=== PATIENT | male | born 1950 | race Caucasian/White ===

== ENCOUNTER 2017-01-23 17:05 | Inpatient (IN) | payer OTHER ==
[2017-01-23] MEDS ORDERED: SODIUM CHLORIDE 0.9% 2,000 ML ONE (17:29)
[2017-01-23 17:59] LABS: ALB/GLOB RATIO 1.1 (>1.0); CALCIUM 10.1 mg/dL (8.6-10.3)
[2017-01-23] MEDS ORDERED: POTASSIUM CHLORIDE 10MEQ/100ML 100 ML IV ONE ×2 (18:30→19:57)
--- NOTE | 2017-01-23 18:41 | RAD ---
CHEST-AP BEDSIDE COMPARISON: Chest 2 views 07/19/2016 HISTORY: Weakness. FINDINGS: Views: Frontal chest. Lungs: Heart and vessels: Normal Trachea and bronchi: Normal Mediastinum and erika: Normal Costophrenic sulci: Normal Chest wall and bones: Normal Upper abdomen: Normal. IMPRESSION: Negative one view chest.
[2017-01-23 18:51] LABS: ABSOLUTE NEUTROPHIL COUNT 4.3 K/mm3 (1.8-7.7); BASO % 0.6 % (0.2-1.0); EOS % 0.2 % (0.9-2.9); HEMATOCRIT 32.7 % (32.0-52.0); IMM NEUT% 0.4 % (0-1); LYMPH # 0.6 (1.0-4.8); LYMPH % 10.9 % (15-45); MEAN CELL VOLUME 94.5 fl (80.0-94.0); MEAN CORPUSCULAR HEMOGLOBIN 34.7 pg (27.0-31.0); MEAN CORPUSCULAR HGB CONC 36.7 g/dl (33.0-37.0); MEAN PLATELET VOLUME 11.2 fl (7.4-10.4); MONO # 0.4 (0.0-0.8); MONO % 8.1 % (4-12); NEUT % 79.8 % (43-75); PLATELET COUNT 249 K/mm3 (130-400); RED CELL DISTRIBUTION WIDTH 12.3 % (11.5-14.5)
[2017-01-23 20:24] LABS: ARTERIAL BLOOD GAS pH 7.487 (7.350-7.450)
[2017-01-23 20:25] LABS: ARTERIAL BLOOD GAS BASE EXCESS 14.3 mmol/L (-2.0-2.0); ARTERIAL BLOOD GAS HCO3 39.6 mmol/L (22.0-28.0); ARTERIAL BLOOD GAS PCO2 53.5 mmHg (35.0-45.0); ARTERIAL BLOOD GAS PO2 68.9 mmHg (80.0-90.0)
[2017-01-23 20:48] VITALS: BMI 23.3
[2017-01-23] MEDS ORDERED: PUMP TUBING ONE ×3 (21:57→22:37)
[2017-01-23] MEDS ORDERED: BLISTEX LIPSTICK 1 EACH TP PRN (22:03)
[2017-01-23] MEDS ORDERED: LORAZEPAM 2 MG/ML 1ML SDV IV PRN (22:03)
[2017-01-23] MEDS ORDERED: HYDROMORPHONE HCL 1 MG/ML SYRINGE IV PRN (22:11)
[2017-01-23] MEDS ORDERED: ONDANSETRON 4 MG/2ML 2 ML VIAL IV PRN (22:11)
[2017-01-23] MEDS ORDERED: HYDROMORPHONE HCL 2 MG/ML SYRINGE IV PRN (22:11)
[2017-01-23] MEDS ORDERED: PANTOPRAZOLE SODIUM 40 MG VIAL IV SCH (22:15)
[2017-01-23] MEDS ORDERED: MULTIVITAMINS 1,000 ML IV ONE (22:19)
[2017-01-23] MEDS: SODIUM CHLORIDE 0.9% 1,000 ML IV SCH (22:27)
[2017-01-23] MEDS: ENOXAPARIN SODIUM 40 MG/0.4 ML SYRINGE SUB-Q SCH (22:30)
[2017-01-23] MEDS ORDERED: POTASSIUM CHLORIDE 40 MEQ in SODIUM CHLORIDE 0.9% 500 ML IV ONE (22:30)
[2017-01-23] MEDS: MULTIVITAMINS 10 ML, FOLIC ACID 2 MG, MAGNESIUM SULFATE 1 G/2 ML 2 G, THIAMINE HCL 100 ... IV SCH ×5 (22:41)
[2017-01-24] MEDS: SODIUM CHLORIDE 0.9% 1,000 ML IV SCH ×3 (05:20→10:39)
[2017-01-24 05:48] LABS: ABSOLUTE NEUTROPHIL COUNT 3.4 K/mm3 (1.8-7.7); BASO % 0.6 % (0.2-1.0); EOS % 0.4 % (0.9-2.9); HEMATOCRIT 26.6 % (32.0-52.0); HEMOGLOBIN 9.5 gm/l (14.0-18.0); IMM NEUT% 0.4 % (0-1); LYMPH # 1.2 (1.0-4.8); MEAN CELL VOLUME 96.7 fl (80.0-94.0); MEAN CORPUSCULAR HEMOGLOBIN 34.5 pg (27.0-31.0); MEAN CORPUSCULAR HGB CONC 35.7 g/dl (33.0-37.0); MEAN PLATELET VOLUME 10.9 fl (7.4-10.4); MONO # 0.6 (0.0-0.8); MONO % 10.6 % (4-12); PLATELET COUNT 188 K/mm3 (130-400); RED CELL DISTRIBUTION WIDTH 12.4 % (11.5-14.5)
[2017-01-24 06:14] LABS: ALB/GLOB RATIO 1.1 (>1.0); ALBUMIN 3.1 gm/dL (3.5-5.7); MAGNESIUM 2.3 mg/dL (1.9-2.7)
[2017-01-24] MEDS ORDERED: POTASSIUM CHLORIDE 40 MEQ in SODIUM CHLORIDE 0.9% 500 ML IV ONE ×2 (07:30→19:00)
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
[2017-01-24] MEDS: PANTOPRAZOLE SODIUM 40 MG VIAL IV SCH ×2 (08:46→21:41)
[2017-01-24 09:36] LABS: SPECIFIC GRAVITY 1.015 (1.001-1.030); URINE BILIRUBIN NEGATIVE (NEGATIVE); URINE BLOOD 3+ (NEGATIVE); URINE GLUCOSE (UA) NEGATIVE (NEGATIVE); URINE LEUKOCYTE ESTERASE TRACE (NEGATIVE); URINE NITRITE NEGATIVE (NEGATIVE); URINE PROTEIN NEGATIVE (NEGATIVE); URINE UROBILINOGEN NORMAL (0-1 mg/dl)
[2017-01-24] MEDS ORDERED: SODIUM CHLORIDE 0.9% 1,000 ML IV SCH (09:45)
[2017-01-24 09:59] LABS: URINE APPEARANCE HAZY; URINE COLOR YELLOW
[2017-01-24 10:00] LABS: AMPHETAMINES/METHAMPHETAMINES NEGATIVE (NEGATIVE); COCAINE NEGATIVE (NEGATIVE); MARIJUANA POSITIVE (NEGATIVE); METHADONE NEGATIVE (NEGATIVE); OPIATES NEGATIVE (NEGATIVE); TRICYCLIC ANTIDEPRESSANTS NEGATIVE (NEGATIVE)
[2017-01-24 10:18] LABS: URINE BACTERIA FEW; URINE WBC 0-3 /hpf
[2017-01-24 10:19] LABS: URINE AMORPHOUS SEDIMENT 1+
[2017-01-24] MEDS ORDERED: DEXTROSE 50%-WATER 25 G SYRINGE IV ONE (10:29)
--- NOTE | 2017-01-24 10:37 | PDOC43 ---
- Subjective Chief Complaint: Vomiting Awake and responds to yes/no questions by shaking head. Indicates abdominal pain and lightheadedness. Had vomiting and diarrhea at home. - Objective Vital Signs Temperature 97.7 F 01/24/17 07:20 Pulse Rate 78 01/24/17 07:20 Respiratory Rate 10 01/24/17 07:20 Blood Pressure 84/46 01/24/17 07:20 O2 Saturation by Pulse Oximetry 99 01/24/17 07:20 Oxygen Delivery Method Room Air Oxygen Flow Rate 0 Intake and Output 01/23/17 01/24/17 01/25/17 06:59 06:59 06:59 Intake Total 1187 Output Total 870 600 Balance 317 -600 General: Alert, Cooperative, Mild Distress HEENT: Mucous membr. moist/pink (tissue in mouthto absorb secretions) Lungs: Clear to Auscultation Bilaterally Cardiovascular: Regular Rate and Rhythm Abdomen: Firm, Tenderness (epigastrum and LLQ), Normal Bowel Sounds, Non- Distended, No Rebounding, No Involuntary Guarding, No Masses Extremities: Normal Pulses, No Edema Skin: Normal Color Laboratory 01/24/17 05:30 01/24/17 05:30 01/24/17 05:30 RBC 2.75 L MCV 96.7 H MCH 34.5 H Total Protein 5.9 L Albumin 3.1 L Current Medications: Current meds reviewed in EMR. - Problems: Assessment/Plan (1) Pancreatitis Qualifiers: Chronicity: acute Pancreatitis type: alcohol induced Acute pancreatitis complication: unspecified Qualifier Code: (K85.20) Alcohol induced acute pancreatitis without necrosis or infection Status: Acute Assessment/Plan: Acute pancreatitis presumed due to EtOH abuse present on admit causing vomiting , abd. pain, diarrhea and severe dehydration with lactic acidosis. Hypotension and tachycardia due to dehydration still requiring fluid replacement. Lipase is normal today but abdomen acid tender therefore will not resume tube feeding today. Does not have evidence of sepsis or chronic liver disease. (2) Dehydration Status: AcuteAssessment/Plan: Associated with lactic acidosis, electrolyte abnormalities and due to acute pancreatitis, still symptomatic. Continue fluid and electrolyte replacement. (3) Alcohol abuse, episodic Status: AcuteAssessment/Plan: [facility] protocol (4) CAD (coronary artery disease), [place] coronary artery Qualifiers: [place] vs. transplanted heart: [place] heart Associated angina: without angina Qualifier Code: (I25.10) Atherosclerotic heart disease of [place] coronary artery without angina pectoris Status: ChronicAssessment/Plan: No evidence of ACS. Metoprolol on hold due to hypotension. (5) Hypertension Qualifiers: Hypertension type: essential hypertension Qualifier Code: (I10) Essential (primary) hypertension Status: AcuteAssessment/Plan: Currently hypotensive due to dehydration and meds on hold. (6) COPD (chronic obstructive pulmonary disease) Qualifiers: COPD type: unspecified COPD Qualifier Code: (J44.9) Chronic obstructive pulmonary disease, unspecified Status: ChronicAssessment/Plan: Not using home inhalers due to late effects of CVA, no O2 requirement. (7) PTSD (post-traumatic stress disorder) Status: ChronicAssessment/Plan: Resume meds when known. (8) Hypokalemia Status: AcuteAssessment/Plan: replace (9) Hyponatremia Status: AcuteAssessment/Plan: replace (10) Anemia Status: AcuteAssessment/Plan: acute change due to dilution from IVF. Likely has chronic anemia due to nutritional factors and alcoholism. (11) Late effects of CVA (cerebrovascular accident) Status: ChronicAssessment/Plan: Chronic dysphagia with G-tube and aphasia due to prior CVA. (12) Hypoglycemia Status: AcuteAssessment/Plan: Add dextrose to IVF and check CBGs Q6h. VTE Prophylaxis: Enoxaparin Disposition: unclear
[2017-01-24] MEDS: D5NS with 20mEq KCL 1,000 ML IV SCH ×2 (11:16→14:50)
[2017-01-24 17:29] LABS: INR 1.03; PROTHROMBIN TIME 10.8 SECONDS (9.3-11.4)
[2017-01-24 17:50] LABS: CALCIUM 8.5 mg/dL (8.6-10.3)
[2017-01-24] MEDS: NS/Potassium Chlor 20 mEq 1,000 ML IV SCH (19:15)
[2017-01-24] MEDS: ENOXAPARIN SODIUM 40 MG/0.4 ML SYRINGE SUB-Q SCH (21:41)
[2017-01-24 22:00] LABS: FOLIC ACID > 23.7 ng/mL (>5.9)
[2017-01-24] MEDS ORDERED: PUMP TUBING ONE (22:13)
[2017-01-24] MEDS: MULTIVITAMINS 10 ML, FOLIC ACID 2 MG, MAGNESIUM SULFATE 1 G/2 ML 2 G, THIAMINE HCL 100 ... IV SCH ×5 (22:23)
[2017-01-25] MEDS ORDERED: D5 1/2NS with 20 mEq KCL 1,000 ML IV SCH (03:15)
[2017-01-25] MEDS: NS/Potassium Chlor 20 mEq 1,000 ML IV SCH (03:45)
[2017-01-25 06:12] LABS: HEMATOCRIT 24.2 % (32.0-52.0); HEMOGLOBIN 8.3 gm/l (14.0-18.0); MEAN CELL VOLUME 99.6 fl (80.0-94.0); MEAN CORPUSCULAR HEMOGLOBIN 34.2 pg (27.0-31.0); MEAN CORPUSCULAR HGB CONC 34.3 g/dl (33.0-37.0)
[2017-01-25 06:35] LABS: ALBUMIN 2.7 gm/dL (3.5-5.7); CALCIUM 8.6 mg/dL (8.6-10.3)
[2017-01-25] MEDS ORDERED: INSULIN ASPART (DOSE) 100 UNITS/1 ML SUB-Q PRN (07:41)
--- NOTE | 2017-01-25 07:43 | PDOC43 ---
- Subjective Chief Complaint: Vomiting Awake and alert. Denies abd pain or nausea, has been reporting hunger. Denies CP or dyspnea but still feels lightheaded. - Objective Vital Signs Temperature 97.7 F 01/25/17 02:41 Pulse Rate 74 01/25/17 04:19 Respiratory Rate 14 01/25/17 04:19 Blood Pressure 107/64 01/25/17 04:19 O2 Saturation by Pulse Oximetry 96 01/25/17 04:19 Oxygen Delivery Method Nasal Cannula Oxygen Flow Rate 2 Intake and Output 01/24/17 01/25/17 01/26/17 06:59 06:59 06:59 Intake Total 1187 4681 Output Total 870 1551 Balance 317 3130 General: Alert, Cooperative, No Acute Distress HEENT: Mucous membr. moist/pink Lungs: Clear to Auscultation Bilaterally Cardiovascular: Regular Rate and Rhythm Abdomen: Soft, Hypoactive Bowel Sounds, No Tenderness, No Masses Extremities: Pulses Diminished but Palpable, No Edema Skin: Normal Color Psych/Mental Status: Normal Mood Laboratory 01/25/17 05:30 01/25/17 05:30 01/25/17 01/24/17 01/24/17 05:30 17:02 10:33 RBC 2.43 L MCV 99.6 H MCH 34.2 H Anion Gap 6 L Estimated GFR 112 H 96 H Calcium 8.5 L Iron 46 L Total Protein 5.3 L Albumin 2.7 L U Marijuana (THC) Screen 01/24/17 09:05 RBC MCV MCH Anion Gap Estimated GFR Calcium Iron Total Protein Albumin U Marijuana (THC) Screen Positive H Current Medications: Current meds reviewed in EMR. - Problems: Assessment/Plan (1) Pancreatitis Qualifiers: Chronicity: acute Pancreatitis type: alcohol induced Acute pancreatitis complication: unspecified Qualifier Code: (K85.20) Alcohol induced acute pancreatitis without necrosis or infection Status: Acute Assessment/Plan: Acute pancreatitis presumed due to EtOH abuse present on admit causing vomiting , abd. pain, diarrhea and severe dehydration with lactic acidosis. Hypotension and tachycardia due to dehydration was related to pancreatitis. Lipase is normal and pain has resolved, will resume tube feeding per RD plan. Does not have evidence of sepsis or chronic liver disease. (2) Dehydration Status: AcuteAssessment/Plan: Associated with lactic acidosis, electrolyte abnormalities and due to acute pancreatitis, still symptomatic. Continue fluid and electrolyte replacement. (3) Alcohol abuse, episodic Status: AcuteAssessment/Plan: [facility] protocol (4) CAD (coronary artery disease), [place] coronary artery Qualifiers: [place] vs. transplanted heart: [place] heart Associated angina: without angina Qualifier Code: (I25.10) Atherosclerotic heart disease of [place] coronary artery without angina pectoris Status: ChronicAssessment/Plan: No evidence of ACS. Metoprolol on hold due to hypotension. (5) Hypertension Qualifiers: Hypertension type: essential hypertension Qualifier Code: (I10) Essential (primary) hypertension Status: AcuteAssessment/Plan: Currently hypotensive due to dehydration and meds on hold. (6) COPD (chronic obstructive pulmonary disease) Qualifiers: COPD type: unspecified COPD Qualifier Code: (J44.9) Chronic obstructive pulmonary disease, unspecified Status: ChronicAssessment/Plan: Not using home inhalers due to late effects of CVA. Appears to have sleep apnea and needs O2 when he is is not awake, this may be central sleep apnea due to his prior CVA. (7) PTSD (post-traumatic stress disorder) Status: ChronicAssessment/Plan: Resume Paroxetine per GT (8) Hypokalemia Status: AcuteAssessment/Plan: improving with replacement (9) Hyponatremia Status: AcuteAssessment/Plan: improving (10) Anemia Qualifiers: Anemia type: iron deficiency Iron deficiency anemia type: inadequate dietary iron intake Qualifier Code: (D50.8) Other iron deficiency anemias Status: AcuteAssessment/Plan: acute change due to dilution from IVF. Likely has chronic anemia due to nutritional factors and alcoholism. Labs indicate iron deficiency, supplement. (11) Late effects of CVA (cerebrovascular accident) Status: ChronicAssessment/Plan: Chronic dysphagia with G-tube and aphasia due to prior CVA, at baseline. (12) Hypoglycemia Status: AcuteAssessment/Plan: Became hyperglycemic with D5 in IVF, D/C IV dextrose when tube feeding is resumed, continue CBGs Q6h. VTE Prophylaxis: Enoxaparin Disposition: unclear
[2017-01-25] MEDS: PANTOPRAZOLE SODIUM 40 MG VIAL IV SCH ×2 (08:50→21:23)
[2017-01-25] MEDS: FERROUS SULFATE (65 Fe) 325 MG TABLET GT SCH (08:51)
[2017-01-25] MEDS: THIAMINE HCL 100 MG TABLET GT SCH (08:51)
[2017-01-25] MEDS: CLOPIDOGREL BISULFATE 75 MG TABLET GT SCH (08:51)
[2017-01-25] MEDS: ASCORBIC ACID 250 MG TABLET GT SCH (08:51)
[2017-01-25] MEDS: PAROXETINE HCL 30 MG GT SCH (08:52)
[2017-01-25] MEDS ORDERED: THIAMINE HCL 100 MG TABLET PO SCH (09:00)
[2017-01-25] MEDS ORDERED: CALCIUM CARBONATE GT SCH (09:00)
[2017-01-25] MEDS ORDERED: [UNRECOGNIZED DRUG - OTHER] GT SCH (09:00)
[2017-01-25] MEDS ORDERED: VITAMIN D3 GT SCH (09:00)
[2017-01-25] MEDS: CALCIUM CARBONATE 600 MG/VITAMIN D3 400 UNIT/TABLET GT SCH ×2 (11:15→21:23)
[2017-01-25] MEDS ORDERED: SODIUM CHLOR 0.9% w 40mEq KCL 1,000 ML IV SCH (15:45)
[2017-01-25] MEDS ORDERED: PUMP TUBING ONE (15:54)
[2017-01-25] MEDS: ENOXAPARIN SODIUM 40 MG/0.4 ML SYRINGE SUB-Q SCH (21:23)
[2017-01-25] MEDS: ATORVASTATIN CALCIUM 40 MG TABLET GT SCH (21:23)
[2017-01-25] MEDS: MULTIVITAMINS 10 ML, FOLIC ACID 2 MG, MAGNESIUM SULFATE 1 G/2 ML 2 G, THIAMINE HCL 100 ... IV SCH ×5 (22:55)
[2017-01-26] MEDS ORDERED: ALBUTEROL NEB 2.5 MG/3 ML VIAL.NEB NEB ONE ×2 (05:00)
[2017-01-26] MEDS ORDERED: WATER FOR IRRIG,STERILE 500 ML BOT ONE (09:32)
[2017-01-26] MEDS ORDERED: IV START KIT ONE (09:38)
[2017-01-26] MEDS: CLOPIDOGREL BISULFATE 75 MG TABLET GT SCH (09:52)
[2017-01-26] MEDS: ASCORBIC ACID 250 MG TABLET GT SCH (09:52)
[2017-01-26] MEDS: PAROXETINE HCL 30 MG GT SCH (09:53)
[2017-01-26] MEDS: PANTOPRAZOLE SODIUM 40 MG VIAL IV SCH (09:53)
[2017-01-26] MEDS: FERROUS SULFATE (65 Fe) 325 MG TABLET GT SCH (09:53)
[2017-01-26] MEDS: THIAMINE HCL 100 MG TABLET GT SCH (09:53)
[2017-01-26] MEDS ORDERED: LORAZEPAM 2 MG/ML GT PRN (11:41)
--- NOTE | 2017-01-26 11:41 | PDOC43 ---
- Subjective Chief Complaint: Vomiting Became agitated and tachycardic this a.m. likely due to EtOH withdrawal. Now sleeping soundly after receiving lorazapam. Tolerating tube feeding. - Objective Vital Signs Temperature 98.1 F 01/26/17 08:19 Pulse Rate 122 01/26/17 08:19 Respiratory Rate 24 01/26/17 08:19 Blood Pressure 97/66 01/26/17 08:19 O2 Saturation by Pulse Oximetry 87 01/26/17 08:19 Oxygen Delivery Method Room Air Oxygen Flow Rate 0 95% on 2 L/min by NC while sleeping Intake and Output 01/25/17 01/26/17 01/27/17 06:59 06:59 06:59 Intake Total 4681 1453 Output Total 1551 342 121 Balance 3130 1111 -121 General: No Acute Distress HEENT: Mucous membr. moist/pink Lungs: Clear to Auscultation Bilaterally Cardiovascular: Regular Rate and Rhythm Abdomen: Soft, Normal Bowel Sounds, No Tenderness, No Masses Extremities: Normal Pulses, No Edema Skin: Normal Color Laboratory 01/25/17 05:30 01/26/17 05:45 01/26/17 01/26/17 01/25/17 06:14 05:45 18:23 Estimated GFR 96 H POC Capillary Glucose 158 H 140 H Current Medications: Current meds reviewed in EMR. - Problems: Assessment/Plan (1) Pancreatitis Qualifiers: Chronicity: acute Pancreatitis type: alcohol induced Acute pancreatitis complication: unspecified Qualifier Code: (K85.20) Alcohol induced acute pancreatitis without necrosis or infection Status: Acute Assessment/Plan: Acute pancreatitis presumed due to EtOH abuse present on admit causing vomiting , abd. pain, diarrhea and severe dehydration with lactic acidosis. Hypotension and tachycardia were due to dehydration and were related to pancreatitis. Lipase is normal and pain has resolved, tolerating tube feeding per RD plan. Does not have evidence of sepsis or chronic liver disease. (2) Dehydration Status: AcuteAssessment/Plan: Associated with lactic acidosis, electrolyte abnormalities and due to acute pancreatitis. Resolved. (3) Alcohol abuse, episodic Status: AcuteAssessment/Plan: [facility] protocol, now appears to have withdrawal sx but over-sedated by lorazapam, decrease dose. (4) CAD (coronary artery disease), [place] coronary artery Qualifiers: [place] vs. transplanted heart: [place] heart Associated angina: without angina Qualifier Code: (I25.10) Atherosclerotic heart disease of [place] coronary artery without angina pectoris Status: ChronicAssessment/Plan: No evidence of ACS. Out patient metoprolol treatment was stopped last month due to hypotension. (5) Hypertension Qualifiers: Hypertension type: essential hypertension Qualifier Code: (I10) Essential (primary) hypertension Status: AcuteAssessment/Plan: Not on any antihypertensive as an outpatient and not requiring treatment now. (6) COPD (chronic obstructive pulmonary disease) Qualifiers: COPD type: unspecified COPD Qualifier Code: (J44.9) Chronic obstructive pulmonary disease, unspecified Status: ChronicAssessment/Plan: Not using home inhalers due to late effects of CVA. Appears to have sleep apnea and needs O2 when he is is not awake, this may be central sleep apnea due to his prior CVA. (7) PTSD (post-traumatic stress disorder) Status: ChronicAssessment/Plan: Paroxetine per GT (8) Hypokalemia Status: AcuteAssessment/Plan: improving with replacement (9) Hyponatremia Status: AcuteAssessment/Plan: Resolved. (10) Anemia Qualifiers: Anemia type: iron deficiency Iron deficiency anemia type: inadequate dietary iron intake Qualifier Code: (D50.8) Other iron deficiency anemias Status: AcuteAssessment/Plan: acute change due to dilution from IVF. Likely has chronic anemia due to nutritional factors and alcoholism. Labs indicate iron deficiency, supplement started. (11) Late effects of CVA (cerebrovascular accident) Status: ChronicAssessment/Plan: Chronic dysphagia with G-tube and aphasia due to prior CVA, at baseline. On clopidogrel to prevent recurrent stroke. (12) Hypoglycemia Status: AcuteAssessment/Plan: Transient hypoglycemia requiring D25 on 01/24. Became hyperglycemic with D5 in IVF, now stable on tube feeding, continue CBGs Q6h. VTE Prophylaxis: Enoxaparin Disposition: Looking into SNF in [place]. Should be ready to discharge in 1-2 days.
[2017-01-26] MEDS: POTASSIUM CHLORIDE 20 MEQ TAB.PRT.SR GT SCH ×2 (12:18→20:45)
[2017-01-26] MEDS: CALCIUM CARBONATE 600 MG/VITAMIN D3 400 UNIT/TABLET GT SCH ×2 (12:21→20:45)
[2017-01-26] MEDS: ATORVASTATIN CALCIUM 40 MG TABLET GT SCH (20:45)
[2017-01-26] MEDS: ENOXAPARIN SODIUM 40 MG/0.4 ML SYRINGE SUB-Q SCH (20:46)
[2017-01-26] MEDS ORDERED: ALBUTEROL/IPRATROPIUM 2.5/0.5 MG 3 ML/EACH DOSE ONE (21:25)
[2017-01-26] MEDS ORDERED: ALBUTEROL NEB 2.5 MG/3 ML VIAL.NEB NEB PRN (21:30)
--- NOTE | 2017-01-26 21:53 | PDOC43 ---
- Subjective Chief Complaint: Vomiting Sudden increase in RR, pulse and dyspnea with hypoxemia this evening. Denies chest pain, denies leg pain. - Objective Vital Signs Temperature 98.9 F 01/26/17 19:00 Pulse Rate 133 01/26/17 21:37 Respiratory Rate 32 01/26/17 21:37 Blood Pressure 94/68 01/26/17 19:00 O2 Saturation by Pulse Oximetry 94 01/26/17 21:37 Oxygen Delivery Method Nasal Cannula Oxygen Flow Rate 4 Intake and Output 01/25/17 01/26/17 01/27/17 06:59 06:59 06:59 Intake Total 4681 1453 1205 Output Total 1551 342 219 Balance 3130 1111 986 General: Alert, Cooperative, Moderate Distress HEENT: Mucous membr. moist/pink Lungs: Other (ronchi at bases bilat) Cardiovascular: Regular Rate and Rhythm Abdomen: Soft, Normal Bowel Sounds, No Tenderness Extremities: Cyanosis (mild of toes), Pulses Diminished but Palpable, Other (no swelling or tenderness in calfs or thighs), No Edema Laboratory 01/25/17 05:30 01/26/17 05:45 01/26/17 01/26/17 01/26/17 18:16 13:54 06:14 Estimated GFR POC Capillary Glucose 115 H 144 H 158 H 01/26/17 05:45 Estimated GFR 96 H POC Capillary Glucose Current Medications: Current meds reviewed in EMR. - Problems: Assessment/Plan (1) Hypoxemia Status: AcuteAssessment/Plan: Acute change this evening. Schedule duonebs and prn albuterol nebs ordered. STAT CXR ordered, STAT CBC and BMP ordered. Patient is anxious and may be having acute EtOH withdrawal sx, but need to consider aspiration pneumonia or PE. (2) Pancreatitis Qualifiers: Chronicity: acute Pancreatitis type: alcohol induced Acute pancreatitis complication: unspecified Qualifier Code: (K85.20) Alcohol induced acute pancreatitis without necrosis or infection Status: Acute Assessment/Plan: Acute pancreatitis presumed due to EtOH abuse present on admit causing vomiting , abd. pain, diarrhea and severe dehydration with lactic acidosis. Hypotension and tachycardia were due to dehydration and were related to pancreatitis. Lipase is normal and pain has resolved, tolerating tube feeding per RD plan. Does not have evidence of sepsis or chronic liver disease. (3) Dehydration Status: AcuteAssessment/Plan: Associated with lactic acidosis, electrolyte abnormalities and due to acute pancreatitis. Resolved. (4) Alcohol abuse, episodic Status: AcuteAssessment/Plan: [facility] protocol, now appears to have withdrawal sx but over-sedated by lorazapam, decrease dose. (5) CAD (coronary artery disease), [place] coronary artery Qualifiers: [place] vs. transplanted heart: [place] heart Associated angina: without angina Qualifier Code: (I25.10) Atherosclerotic heart disease of [place] coronary artery without angina pectoris Status: ChronicAssessment/Plan: No evidence of ACS. Out patient metoprolol treatment was stopped last month due to hypotension. (6) Hypertension Qualifiers: Hypertension type: essential hypertension Qualifier Code: (I10) Essential (primary) hypertension Status: AcuteAssessment/Plan: Not on any antihypertensive as an outpatient and not requiring treatment now. (7) COPD (chronic obstructive pulmonary disease) Qualifiers: COPD type: unspecified COPD Qualifier Code: (J44.9) Chronic obstructive pulmonary disease, unspecified Status: ChronicAssessment/Plan: Not using home inhalers due to late effects of CVA. Appears to have sleep apnea and needs O2 when he is is not awake, this may be central sleep apnea due to his prior CVA. (8) PTSD (post-traumatic stress disorder) Status: ChronicAssessment/Plan: Paroxetine per GT (9) Hypokalemia Status: AcuteAssessment/Plan: improving with replacement (10) Hyponatremia Status: AcuteAssessment/Plan: Resolved. (11) Anemia Qualifiers: Anemia type: iron deficiency Iron deficiency anemia type: inadequate dietary iron intake Qualifier Code: (D50.8) Other iron deficiency anemias Status: AcuteAssessment/Plan: acute change due to dilution from IVF. Likely has chronic anemia due to nutritional factors and alcoholism. Labs indicate iron deficiency, supplement started. (12) Late effects of CVA (cerebrovascular accident) Status: ChronicAssessment/Plan: Chronic dysphagia with G-tube and aphasia due to prior CVA, at baseline. On clopidogrel to prevent recurrent stroke. (13) Hypoglycemia Status: AcuteAssessment/Plan: Transient hypoglycemia requiring D25 on 01/24. Became hyperglycemic with D5 in IVF, now stable on tube feeding, continue CBGs Q6h. VTE Prophylaxis: Enoxaparin Disposition: Looking into SNF in [place]. Should be ready to discharge in 1-2 days.
[2017-01-26] MEDS ORDERED: FUROSEMIDE 40 MG/4 ML VIAL IV ONE (21:54)
[2017-01-26 22:06] LABS: BASO % 0.4 % (0.2-1.0); EOS % 0.3 % (0.9-2.9); HEMATOCRIT 32.8 % (32.0-52.0); IMM NEUT% 0.2 % (0-1); LYMPH # 1.8 (1.0-4.8); LYMPH % 19.1 % (15-45); MEAN CELL VOLUME 102.5 fl (80.0-94.0); MEAN CORPUSCULAR HEMOGLOBIN 34.4 pg (27.0-31.0); MEAN CORPUSCULAR HGB CONC 33.5 g/dl (33.0-37.0); MEAN PLATELET VOLUME 10.7 fl (7.4-10.4); MONO # 0.5 (0.0-0.8); PLATELET COUNT 202 K/mm3 (130-400); RED CELL DISTRIBUTION WIDTH 13.3 % (11.5-14.5)
[2017-01-26 22:29] LABS: MAGNESIUM 1.7 mg/dL (1.9-2.7)
[2017-01-26] MEDS ORDERED: MAGNESIUM SULFATE 2 G/50 ML 2 G in Premix (Water) 50 ml 1 EACH IV ONE (22:46)
[2017-01-27] MEDS ORDERED: PUMP TUBING ONE ×6 (00:29→11:16)
[2017-01-27] MEDS: SODIUM CHLORIDE 0.9% 100 ML IV PRN ×2 (00:35→08:02)
[2017-01-27] MEDS: LORAZEPAM 2 MG/ML 1ML SDV IV PRN ×2 (00:35→08:02)
[2017-01-27] MEDS: MAGNESIUM SULFATE 1 G/100 ML 100 ML IV SCH ×2 (00:36→01:54)
[2017-01-27 00:53] LABS: ARTERIAL BLOOD GAS PCO2 38.4 mmHg (35.0-45.0); ARTERIAL BLOOD GAS pH 7.455 (7.350-7.450)
[2017-01-27 00:54] LABS: ARTERIAL BLOOD GAS BASE EXCESS 2.4 mmol/L (-2.0-2.0); ARTERIAL BLOOD GAS HCO3 26.4 mmol/L (22.0-28.0); ARTERIAL BLOOD GAS PO2 21.3 mmHg (80.0-90.0)
[2017-01-27] MEDS ORDERED: SODIUM CHLORIDE 0.9% FLUSH 10 ML ONE ×3 (01:26→08:47)
[2017-01-27] MEDS ORDERED: IV START KIT ONE ×4 (01:26→11:08)
--- NOTE | 2017-01-27 01:47 | PDOC36 ---
Provider Note Subject: Acute Hypoxemic respiratory failure Note: Patient continues to have agitation, tachycardia and tachypnea. He continues to indicate dyspnea but deny chest pain. Groaning and trying to climb out of bed. Did not improve with furosemide or magnesium given IV. ABG shows severe hypoxemia but is not consistent with bedside pulse ox or clinical exam. Will repeat ABG and obtain CTA chest, patient will need sedation for CT. Transfer to [facility] [place].
[2017-01-27] MEDS ORDERED: LORAZEPAM 2 MG/ML 1ML SDV IV ONE (01:58)
[2017-01-27] MEDS ORDERED: LORAZEPAM 2 MG/ML 1ML SDV IV PRN ×2 (01:59)
[2017-01-27] MEDS ORDERED: IOPAMIDOL 370 (76%) IV.SOLN 150 ML IV ONE (02:27)
[2017-01-27] MEDS ORDERED: ADENOSINE 6MG/2ML 2 ML VIAL IV ONE ×3 (02:32→02:58)
[2017-01-27] MEDS ORDERED: DILTIAZEM HCL 5 MG/ML 5ML VIAL IV ONE ×3 (02:35→03:00)
[2017-01-27] MEDS ORDERED: METOPROLOL TARTRATE 1 MG/ML 5ML VIAL IV SCH (03:00)
[2017-01-27] MEDS ORDERED: FUROSEMIDE 40 MG/4 ML VIAL IV ONE ×2 (03:00→08:33)
[2017-01-27] MEDS ORDERED: ENOXAPARIN SODIUM 60 MG/0.6 ML SYRINGE SUB-Q ONE (03:00)
[2017-01-27] MEDS ORDERED: DILTIAZEM HCL/NORMAL SALINE 100 ML IV PRN (03:15)
[2017-01-27] MEDS ORDERED: ACETAMINOPHEN 325 MG TABLET GT PRN (03:16)
[2017-01-27] MEDS: ASPIRIN (UNCOATED) 325 MG TABLET GT SCH ×2 (03:19→11:06)
[2017-01-27] MEDS ORDERED: CLINDAMYCIN PHOSPHATE 600 MG/4 ML VIAL ONE (03:32)
[2017-01-27] MEDS ORDERED: SODIUM CHLORIDE 0.9% 50 ML IV ONE (03:33)
[2017-01-27] MEDS: CLINDAMYCIN 600 MG PREMIX 600 MG in Premix (D5W) 50 ml 1 EACH IV SCH ×2 (04:05→09:40)
--- NOTE | 2017-01-27 04:15 | PDOC43 ---
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 Appeared to be going into acute alcohol withdrawal and was given lorazapam, but continued to progress to acute hypoxemic respiratory failure. CXR looked like pulmonary edema and furosemide was given. No improvement was noted and tachycardia got worse. CTA was obtained and patient moved to [facility]. Given adenosine for tachycardia without improvement, then given diltiazem with good response. Elevated troponin noted and ACS treatment instituted. Now febrile, will obtain blood cx and treat for potential hospital acquired aspiration pneumonia. Now unresponsive, but was given 4 mg lorazapam for CTA. - Objective Vital Signs Temperature 1o3 F 01/26/17 23:54 Pulse Rate 110 01/27/17 03:01 Respiratory Rate 30 01/26/17 23:54 Blood Pressure 115/77 01/27/17 03:01 O2 Saturation by Pulse Oximetry 99 01/27/17 03:01 Oxygen Delivery Method BiPAP Oxygen Flow Rate 100% Intake and Output 01/25/17 01/26/17 01/27/17 06:59 06:59 06:59 Intake Total 4681 1453 1205 Output Total 1551 342 219 Balance 3130 1111 986 General: No Alert HEENT: Other (BiPAP mask in place) Lungs: Other (Ronchi throughout) Cardiovascular: Regular Rate and Rhythm (rapid) Abdomen: Soft, Normal Bowel Sounds, No Masses Genitourinary: Indwelling Urinary Cath Extremities: Cyanosis (mild in toes), Pulses Diminished but Palpable, No Edema Laboratory 01/26/17 22:00 01/26/17 22:00 01/27/17 01/27/17 01/26/17 01:41 01:15 23:08 RBC MCV MCH pO2 21.3 L* ABG pH 7.455 H ABG O2 Saturation 37.0 L ABG Base Excess 2.4 H Estimated GFR POC Capillary Glucose 113 H Magnesium CK-MB (CK-2) 7.2 H Troponin I 2.13 H* 01/26/17 01/26/17 01/26/17 22:00 21:59 18:16 RBC 3.20 L MCV 102.5 H MCH 34.4 H pO2 ABG pH ABG O2 Saturation ABG Base Excess Estimated GFR 96 H POC Capillary Glucose 134 H 115 H Magnesium 1.7 L CK-MB (CK-2) Troponin I 01/26/17 01/26/17 01/26/17 13:54 06:14 05:45 RBC MCV MCH pO2 ABG pH ABG O2 Saturation ABG Base Excess Estimated GFR 96 H POC Capillary Glucose 144 H 158 H Magnesium CK-MB (CK-2) Troponin I Current Medications: Current meds reviewed in EMR. - Problems: Assessment/Plan (1) Hypoxemia Status: AcuteAssessment/Plan: Acute hypoxemic respiratory failure due to some combination of acute pulmonary edema, aspiration pneumonia, COPD and/or ACS. Moved to [facility], support with BiPAP and titrate O2 as needed. CTA consistent with pulmonary edema, furosemide given, follow for response, ECHO. (2) Tachycardia Status: AcuteAssessment/Plan: Associated with acute respiratory failure and acute alcohol withdrawal. Did not respond to adenosine IV but EKG appeared irregular and rate responded to IV diltiazem. Diltiazem drip started. (3) Fever Qualifiers: Encounter type: initial encounter Status: AcuteAssessment/Plan: Axillary temp of 103.3 at 0200 after transfer to ICU. CTA with "patchy infiltrates" in addition to pulmonary edema may represent multifocal pneumonia. Clindamycin, Cefepime and Vancomycin started for healthcare associated aspiration pneumonia, presumed bacterial with risk for MRSA and Pseudomonas. (4) CAD (coronary artery disease), [place] coronary artery Qualifiers: [place] vs. transplanted heart: [place] heart Associated angina: without angina Qualifier Code: (I25.10) Atherosclerotic heart disease of [place] coronary artery without angina pectoris Status: ChronicAssessment/Plan: Now with elevated troponin due to NSTEMI vs. demand ischemia due to tachycardia and acute respiratory failure. Started ASA and treatment dose enoxaparin. Did not tolerate IV metoprolol due to hypotension. Continue statin therapy, check repeat cardiac enzymes. (5) Alcohol abuse, episodic Status: AcuteAssessment/Plan: Developed agitation on the evening of 4 and became worse 3/5 p.m. Contributing to and confusing picture of acute respiratory failure. Continue lorazapam per CIWA protocol. (6) Hypertension Qualifiers: Hypertension type: essential hypertension Qualifier Code: (I10) Essential (primary) hypertension Status: ChronicAssessment/Plan: Not on any antihypertensive as an outpatient due to profound hypotension with B- blockers. Same result here with just 2.5 mg IV metoprolol given x 1. (7) COPD (chronic obstructive pulmonary disease) Qualifiers: COPD type: unspecified COPD Qualifier Code: (J44.9) Chronic obstructive pulmonary disease, unspecified Status: ChronicAssessment/Plan: Chronic condition may be contributing to his acute respiratory failure, scheduled duonebs and PRN albuterol started. Not using home inhalers due to late effects of CVA. Appears to have sleep apnea and needs O2 when he is is not awake, this may be central sleep apnea due to his prior CVA. (8) PTSD (post-traumatic stress disorder) Status: ChronicAssessment/Plan: Paroxetine per GT (9) Hypokalemia Status: AcuteAssessment/Plan: improving with replacement (10) Hyponatremia Status: AcuteAssessment/Plan: Resolved. (11) Anemia Qualifiers: Anemia type: iron deficiency Iron deficiency anemia type: inadequate dietary iron intake Qualifier Code: (D50.8) Other iron deficiency anemias Status: AcuteAssessment/Plan: acute change due to dilution from IVF. Likely has chronic anemia due to nutritional factors and alcoholism. Labs indicate iron deficiency, supplement started. (12) Late effects of CVA (cerebrovascular accident) Status: ChronicAssessment/Plan: Chronic dysphagia with G-tube and aphasia due to prior CVA, at baseline. On clopidogrel to prevent recurrent stroke. (13) Hypoglycemia Status: AcuteAssessment/Plan: Transient hypoglycemia requiring D25 on 01/24. Became hyperglycemic with D5 in IVF, now stable on tube feeding, continue CBGs Q6h. (14) Pancreatitis Qualifiers: Chronicity: acute Pancreatitis type: alcohol induced Acute pancreatitis complication: unspecified Qualifier Code: (K85.20) Alcohol induced acute pancreatitis without necrosis or infection Status: Acute Assessment/Plan: Acute pancreatitis presumed due to EtOH abuse present on admit causing vomiting , abd. pain, diarrhea and severe dehydration with lactic acidosis. Hypotension and tachycardia on admit were due to dehydration and were related to pancreatitis. Pancreatitis resolved and patient had been tolerating tube feeding per RD plan. Did not have evidence of sepsis or chronic liver disease at the time of admit. (15) Dehydration Status: AcuteAssessment/Plan: Present on admit, associated with lactic acidosis, electrolyte abnormalities and due to acute pancreatitis. Resolved. VTE Prophylaxis: Enoxaparin, now at treatment dose. Disposition: Looking into SNF in [place]. Acute change in status will delay discharge. Additional Comments: Three hours bedside care from 0115 to 0415 provided so far today.
[2017-01-27] MEDS ORDERED: VANCOMYCIN HCL 1 G/20 ML VIAL ONE ×2 (04:35→05:12)
[2017-01-27] MEDS ORDERED: D5W 500 ML IV ONE (04:36)
[2017-01-27] MEDS ORDERED: SODIUM CHLORIDE 0.9% 500 ML ONE ×3 (04:53→05:12)
[2017-01-27] MEDS ORDERED: NOREPINEPHRINE BITARTRATE 1 MG/ML IV ONE (04:58)
[2017-01-27] MEDS ORDERED: D5W 250 ML IV ONE (05:00)
[2017-01-27] MEDS ORDERED: VANCOMYCIN HCL 1.5 G in SODIUM CHLORIDE 0.9% 500 ML IV ONE (05:00)
[2017-01-27] MEDS: NOREPINEPHRINE BITARTRATE 4 MG in D5W 246 ML IV PRN ×3 (05:13→11:44)
[2017-01-27 05:14] LABS: ABSOLUTE NEUTROPHIL COUNT 13.4 K/mm3 (1.8-7.7); BASO % 0.2 % (0.2-1.0); HEMATOCRIT 29.6 % (32.0-52.0); HEMOGLOBIN 9.8 gm/l (14.0-18.0); IMM NEUT # 0.1 K/mm3 (0-0.2); IMM NEUT% 0.3 % (0-1); LYMPH # 0.4 (1.0-4.8); LYMPH % 2.9 % (15-45); MEAN CELL VOLUME 103.1 fl (80.0-94.0); MEAN CORPUSCULAR HEMOGLOBIN 34.1 pg (27.0-31.0); MEAN CORPUSCULAR HGB CONC 33.1 g/dl (33.0-37.0); MEAN PLATELET VOLUME 10.6 fl (7.4-10.4); MONO # 0.7 (0.0-0.8); MONO % 4.9 % (4-12); NEUT % 91.7 % (43-75); PLATELET COUNT 226 K/mm3 (130-400); RED CELL DISTRIBUTION WIDTH 13.2 % (11.5-14.5)
[2017-01-27 05:41] LABS: CALCIUM 8.8 mg/dL (8.6-10.3); MAGNESIUM 2.3 mg/dL (1.9-2.7)
[2017-01-27 05:53] LABS: CKMB ISOENZYME 6.4 ng/ml (0.6-6.3)
[2017-01-27 05:54] LABS: TROPONIN I 4.02 ng/ml (0.0-0.06)
[2017-01-27 06:36] LABS: BAND 3 % (0-10); BASOPHIL 0 % (0-1); EOSINOPHIL 0 % (1-3); LYMPHOCYTE 5 % (15-45); MONOCYTE 3 % (4-12); NEUTROPHILS 89 % (43-75); TOTAL CELLS COUNTED 100
[2017-01-27 06:37] LABS: PLATELET ESTIMATE NORMAL (NORMAL)
--- NOTE | 2017-01-27 07:56 | CT ---
INDICATION: Acute hypoxemia COMPARISON: Plain films earlier on the same day TECHNIQUE: Helical scan mode CT of the Thorax with 2 mm collimated images were obtained after uneventful intravenous contrast administration of 80 of Isovue-370. Sagittal and coronal reformations with high resolution lung algorithm images were also created at this time. Maximal intensity projection images and 3-D volumetric sequences were created. Study is moderately limited by patient breathing motion artifact. DLP: 961.4 FINDINGS: There are no pulmonary arterial filling defects within the central vasculature. Evaluation of the more peripheral vasculature is limited given the artifact. Intralobular septal thickening is identified with patchy areas of groundglass and consolidative density. Bilateral moderate effusions. The central airways are widely patent. There is no axillary adenopathy. Right paratracheal node is identified on image 32 measuring 1.3 x 1.3 cm. Subcarinal node on image 42 measures 2.4 x 1 cm. Right hilar node on image 41 measures 1.8 x 1.5 cm. Nodes are enlarged without respect histology. The heart and great vessels opacify normally. Mild dilation of the main pulmonary artery is present measuring upward 3.6 cm at the bifurcation on image 45. Right pulmonary artery measures 3.2 cm on the same image. Left pulmonary artery measures 2.9 cm on image 40. Reflux of contrast is noted into the liver likely relating to elevated right heart pressures and cardiac dysfunction. No pericardial effusion. Limited evaluation of the upper abdomen demonstrates no gross abnormalities. Review of bone windows demonstrates no osteoblastic or lytic lesions. IMPRESSION: 1. Negative for pulmonary embolism given limitations. 2. Findings of heart failure with intralobular septal thickening, bilateral effusions and patchy airspace disease. Differential considerations could include multifocal pneumonia, though this is thought to be less likely given the overall picture. 3. Other findings as above. Preliminary report was provided by [employer] at approximately 0300 hours on 01/27/2017.
--- NOTE | 2017-01-27 08:04 | RAD ---
EXAMINATION : CHEST-AP BEDSIDE HISTORY: Acute hypoxemia COMPARISONS: 01/23/2017 FINDINGS: Borderline cardiomegaly is again noted. Aortic ectasia is evident. There is increased moderate pulmonary vascular congestion with pulmonary edema pattern since the prior study. This is superimposed upon prominent bronchovascular markings/mild fibrosis. There are small bilateral pleural effusions suggested. The osseous structures are within normal limits. IMPRESSION: CHF/pulmonary edema with small bilateral pleural effusions.
[2017-01-27 08:42] LABS: ARTERIAL BLOOD GAS PCO2 48.1 mmHg (35.0-45.0); ARTERIAL BLOOD GAS pH 7.26 (7.350-7.450)
[2017-01-27 08:43] LABS: ARTERIAL BLOOD GAS PO2 37.3 mmHg (80.0-90.0)
[2017-01-27 08:44] LABS: ARTERIAL BLOOD GAS HCO3 21.1 mmol/L (22.0-28.0)
[2017-01-27] MEDS ORDERED: SODIUM CHLORIDE 0.9% 1,000 ML ONE (08:49)
[2017-01-27] MEDS ORDERED: PROPOFOL 100 ML IV PRN (08:56)
[2017-01-27] MEDS ORDERED: MULTIVITAMINS 1 TAB TABLET GT SCH (09:00)
[2017-01-27] MEDS ORDERED: ASPIRIN (ENTERIC COATED) 325 MG TABLET.EC PO SCH (09:00)
[2017-01-27] MEDS ORDERED: PANTOPRAZOLE SODIUM 40 MG VIAL IV SCH (09:00)
[2017-01-27] MEDS ORDERED: PANTOPRAZOLE 40 MG TABLET DR PO SCH (09:00)
[2017-01-27] MEDS ORDERED: Cefepime HCl 1 G in NS 0.9% (MINI-BAG PLUS) 50 ML IV SCH (09:00)
--- NOTE | 2017-01-27 09:43 | RAD ---
01/27/2017 9:37 AM CXR FOR PLACEMENT/LINE or TUBE History: Worsening hypoxemia. Comparison: Plain films earlier on the same day. Findings: Single AP view of the chest is obtained. The lungs again demonstrate the patient's patchy bilateral airspace disease, right greater than left. Right greater than left effusions is also noted. Findings may relate to redistribution. Vascular marginal blurring is also present compatible with the patient's known probable heart failure. Endotracheal tube terminates approximately 2.6 cm above the andrés. EKG leads overlie the chest. The cardiomediastinal silhouette is unremarkable.. The osseous structures are intact.. IMPRESSION: Worsening of the patient's previously seen and described failure, now asymmetric to the right likely relating to dependent changes. Endotracheal tube and other findings as above. Findings were called to Dr. Ford at approximately 0 940 hours on 01/27/2017.
[2017-01-27] MEDS ORDERED: ETOMIDATE 2 MG/ML 10ML VIAL IV ONE (09:44)
[2017-01-27] MEDS ORDERED: ROCURONIUM 10 MG/ML IV ONE (09:45)
[2017-01-27] MEDS ORDERED: FENTANYL 100 MCG/2 ML VIAL IV PRN (09:57)
[2017-01-27] MEDS ORDERED: FENTANYL IV PRN ×2 (10:00→11:34)
[2017-01-27] MEDS ORDERED: ASPIRIN PR SCH (10:00)
[2017-01-27] MEDS ORDERED: SODIUM CHLORIDE 0.9% IV PRN ×2 (10:00→11:34)
[2017-01-27] MEDS: MIDAZOLAM HCL 5 MG/5 ML VIAL IV PRN ×2 (10:43→12:37)
[2017-01-27] MEDS: CLOPIDOGREL BISULFATE 75 MG TABLET GT SCH (11:05)
[2017-01-27] MEDS: FERROUS SULFATE (65 Fe) 325 MG TABLET GT SCH (11:05)
[2017-01-27] MEDS: POTASSIUM CHLORIDE 20 MEQ TAB.PRT.SR GT SCH (11:05)
[2017-01-27] MEDS: PAROXETINE HCL 30 MG GT SCH (11:05)
[2017-01-27] MEDS: ASCORBIC ACID 250 MG TABLET GT SCH (11:06)
[2017-01-27] MEDS: THIAMINE HCL 100 MG TABLET GT SCH (11:06)
[2017-01-27] MEDS ORDERED: ENOXAPARIN SODIUM 80 MG/0.8 ML SYRINGE SUB-Q SCH (12:00)
--- NOTE | 2017-01-27 12:03 | TS ---
JAYDON DUBON [id number] : 1950 DATE OF ADMISSION: January 23, 2017 DATE OF DISCHARGE: January 27, 2017 ADMIT DIAGNOSES: 1. Nausea and vomiting. 2. Dehydration. 3. Hypokalemia. 4. Hyponatremia. 5. Alcoholism. 6. Late effects of cerebrovascular accident with aphasia and dysphagia. DISCHARGE DIAGNOSES: 1. Acute hypoxemic respiratory failure due to acute pulmonary edema. 2. Non-ST elevation acute myocardial infarction. 3. Hospital acquired presumed bacterial aspiration pneumonia. 4. Adult respiratory distress syndrome. 5. Coronary artery disease. 6. Episodic alcohol abuse. 7. Hypertension. 8. Chronic obstructive pulmonary disease. 9. Posttraumatic stress disorder. 10. Hypokalemia, resolved. 11. Hyponatremia, resolved. 12. Chronic iron deficiency anemia. 13. Late effects of cerebrovascular accident with aphasia and dysphagia. 14. Transient hypoglycemia. 15. Acute pancreatitis causing the symptoms present on admission, since resolved. 16. Acute dehydration present on admission, resolved. 17. Suspected acute alcohol withdrawal symptoms starting January 25, 2017. PROCEDURES: 1. 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 This was negative for pulmonary embolism but did show evidence of heart failure with bilateral effusions, patchy airspace disease, possible multifocal pneumonia. 2. Echocardiogram on January 27, 2017, showing multiple wall motion abnormalities and left ventricular ejection fraction of 25 to 30%. HISTORY ON ADMISSION: Mr. Dubon is a 66-year-old followed by Dr. Lew Quintero through the [employer]. He presented to [facility] via [facility] transport on January 23, 2017, after developing acute nausea, vomiting, and abdominal pain at home. He was found to be markedly dehydrated with hypokalemia, hyponatremia and elevated lactate. He also had an elevated lipase but his symptoms were felt to be due to acute alcoholic pancreatitis and not indicative of sepsis or septic shock. HOSPITAL COURSE: He was admitted to intermediate care and treated with intravenous fluids. His gastric tube feedings were held. Throughout January 24 and 2016, he remained hypotensive and lightheaded but his abdominal pain and lipase normalized. He was given a large volume of IV fluid hydration and on January 25, 2017 was doing well enough to restart his routine G-tube feedings and transfer to [facility]/surg. On the evening of January 25, 2017, he became increasingly agitated and tachycardic and was felt to be going into acute alcohol withdrawal. He was treated with intravenous lorazepam. On the morning of January 26, 2017, he was extremely somnolent due to the lorazepam treatment and could not be woken. Lorazepam was held and subsequently he woke up and was able to communicate answering yes and no questions but again in the evening became increasingly agitated, tachycardic and hypoxemic. Chest x-ray was obtained which showed pulmonary edema and he was treated with intravenous furosemide. He had minimal response to furosemide and continued to have increasing dyspnea, tachycardia and hypoxemia. He was moved to the intensive care unit and started on BiPAP noninvasive ventilation. His electrocardiogram did not show any ST changes but cardiac enzymes became elevated with a troponin of 2.13 at 1:41 on the morning of January 27, 2017. CT angiogram of the chest was obtained to rule out pulmonary embolism. This confirmed pulmonary edema and suggested multifocal pneumonia at which point he was started on vancomycin, cefepime and clindamycin for hospital associated aspiration pneumonia. For tachycardia he was given adenosine 6 mg rapid IV push, but had no response. He was then given IV diltiazem with good response. A diltiazem drip was started, but he subsequently became hypotensive and required a norepinephrine drip. His respiratory failure continued to worsen despite BiPAP treatment, and he was subsequently intubated and placed on mechanical ventilation. At this point, contact was made with pulmonary intensive care, Dr. Deleon at [facility] and arrangements were made for transfer.
[2017-01-27 12:21] LABS: TROPONIN I 4.72 ng/ml (0.0-0.06)
[2017-01-27 12:23] LABS: CKMB ISOENZYME 9.2 ng/ml (0.6-6.3)
[2017-01-27 12:54] VITALS: BP 96/54
[2017-01-27] MEDS: ALBUTEROL/IPRATROPIUM 2.5/0.5 MG 3 ML/EACH DOSE NEB SCH ×2 (12:58→12:59)
[2017-01-27] MEDS: [UNRECOGNIZED DRUG - OTHER] MM SCH (15:22)
[2017-01-27] MEDS ORDERED: VANCOMYCIN HCL 1.75 G in SODIUM CHLORIDE 0.9% 500 ML IV SCH (17:00)
== END 2017-01-27 12:05 | disposition short-term general hospital (02) | DRG 438 ==
LOC: ED 17:05 → ICU 19:32 → MS 01-25 13:16 → ICU 01-27 03:44
PROVIDERS: ADMIT Family Medicine; ATTEND Family Medicine
DX: K85.20 Alcohol induced acute pancreatitis without necrosis or infection (principal); J96.01 Acute respiratory failure with hypoxia; I21.4 Non-ST elevation (NSTEMI) myocardial infarction; J15.9 Unspecified bacterial pneumonia; I26.99 Other pulmonary embolism without acute cor pulmonale; F10.239 Alcohol dependence with withdrawal, unspecified; E86.0 Dehydration; F10.21 Alcohol dependence, in remission; I25.10 Atherosclerotic heart disease of native coronary artery without angina pectoris; I10 Essential (primary) hypertension; J44.9 Chronic obstructive pulmonary disease, unspecified; F43.12 Post-traumatic stress disorder, chronic; E87.6 Hypokalemia; D64.9 Anemia, unspecified; Z86.73 Personal history of transient ischemic attack (TIA), and cerebral infarction without residual deficits; I69.991 Dysphagia following unspecified cerebrovascular disease; R13.10 Dysphagia, unspecified; E16.2 Hypoglycemia, unspecified; F10.20 Alcohol dependence, uncomplicated; Y95 Nosocomial condition; F43.10 Post-traumatic stress disorder, unspecified; D50.9 Iron deficiency anemia, unspecified